=== PATIENT | male | born 1980 | race American Indian/Alaskan Native ===

== ENCOUNTER 2019-12-26 00:52 | Emergency (ER) | payer OTHER ==
[2019-12-26 01:22] VITALS: BP 164/96
--- NOTE | 2019-12-26 02:17 | Emergency Department Report ---
ED Neuro Deficit HPI - General Chief Complaint: Neuro Symptoms/Deficit Stated Complaint: RT SIDE NUMBNESS Time Seen by Provider: 12/26/19 01:46 Source: patient Mode of arrival: Ambulatory Limitations: No Limitations - History of Present Illness Initial Comments: 39-year-old male with history of hypertension presents to ED with complaint of [id number] sensation and pain in the right hand, right lower face, and right foot. Patient reports symptom onset 2 days ago on 12/24/2019. Patient denies any difficulty ambulating. Patient denies any weakness in the arm or the leg, denies any difficulty speaking, denies any facial droop. Patient denies headache. Patient was seen at outside facility on yesterday, states lab work and EKG were done, but no imaging. -: days(s) (2) Location: right face, other (right hand, right foot) Severity: mild Quality: tingling Improves With: none Worsens With: none On Anticoagulants: No Associated Symptoms: denies: chest pain, fever/chills, headaches, nausea/vomiting, vertigo, shortness of breath - Related Data Allergies/Adverse Reactions: Allergies Allergy/AdvReac Type Severity Reaction Status Date / Time No Known Allergies Allergy Unverified 12/26/19 01:28 ED Review of Systems ROS: Stated complaint: RT SIDE NUMBNESS Other details as noted in HPI Comment: All other systems reviewed and negative Constitutional: denies: chills, fever Respiratory: denies: shortness of breath Cardiovascular: denies: chest pain Gastrointestinal: denies: vomiting, diarrhea Musculoskeletal: other (denies neck and back pain) Neurological: paresthesias. denies: headache, weakness ED Past Medical Hx - Past Medical History Previous Medical History?: Yes Hx Hypertension: Yes Additional medical history: Cardiomyopathy - Surgical History Past Surgical History?: No - Social History Smoking Status: Never Smoker Substance Use Type: None ED Neuro Physical Exam - General Limitations: No Limitations General appearance: alert, in no apparent distress Suspected Stroke: No - Head Head exam: Present: atraumatic, normocephalic - Eye Eye exam: Present: normal appearance, PERRL, EOMI - ENT ENT exam: Present: mucous membranes moist - Neck Neck exam: Present: normal inspection. Absent: tenderness - Respiratory Respiratory exam: Present: normal lung sounds bilaterally. Absent: respiratory distress - Cardiovascular Cardiovascular Exam: Present: regular rate, normal rhythm - GI/Abdominal GI/Abdominal exam: Present: soft. Absent: distended, tenderness - Extremities Exam Extremities exam: Present: normal inspection - Back Exam Back exam: Present: normal inspection. Absent: tenderness - Neurological Exam Neurological exam: Present: alert, oriented X3, CN II-XII intact, normal gait. Absent: motor sensory deficit - NIHSS Assessment Interval: Baseline 1a. Level of Consciousness: alert/keenly responsive 1b. LOC Questions: answers both correctly 1c. LOC Commands: performs tasks correctly 2. Best Gaze: normal 3. Visual: no visual loss 4. Facial Palsy: normal symmetrical movement 5b. Motor Arm Right: no drift 5a. Motor Arm Left: no drift 6a. Motor Leg Left: no drift 6b. Motor Leg Right: no drift 7. Limb Ataxia: absent 8. Sensory: normal 9. Best Language: no aphasia 10. Dysarthria: normal 11. Extinction/Inattention: no abnormality Total Score: 0 Stroke Severity: No Stroke Symptoms - Psychiatric Psychiatric exam: Present: normal affect, normal mood - Skin Skin exam: Present: warm, dry, intact, normal color ED Course Vital Signs 12/26/19 12/26/19 01:18 01:28 Temperature 98.6 F Pulse Rate 98 H Respiratory 18 16 Rate Blood Pressure 164/96 O2 Sat by Pulse 98 Oximetry - Radiology Data Radiology results: report reviewed, image reviewed - Medical Decision Making - right face, right hand, right foot w/ pins and needles sensation - strength intact; no slurred speech; no facial droop - ambulates normally - CT Head negative - this does not seem consistent w/ a CVA given only pt's hand and foot are affected - will d/c home at this time - outpt neuro f/u advised, return precautions given - Differential Diagnosis CVA, neuropathy, MS Critical care attestation.: If time is entered above; I have spent that time in minutes in the direct care of this critically ill patient, excluding procedure time. ED Disposition Clinical Impression: Paresthesia Disposition: -01 TO HOME OR SELFCARE Is pt being admited?: No Condition: Stable Instructions: Paresthesia (ED) Referrals: PRIMARY MD FAVIOLA [Primary Care Provider] - 3-5 Days APOORVA GOEL MD [Referring] - 3-5 Days Time of Disposition: 02:42
--- NOTE | 2019-12-26 02:41 | Cat Scan Report ---
CT HEAD WITHOUT CONTRAST INDICATION / CLINICAL INFORMATION: right hand, right foot, right face numb. TECHNIQUE: All CT scans at this location are performed using CT dose reduction for ALARA by means of automated e xposure control. COMPARISON: None available. FINDINGS: HEMORRHAGE: None. EXTRA-AXIAL SPACES: Normal in size and morphology for the patient's age. VENTRICULAR SYSTEM: Normal in size and morphology for the patient's age. CEREBRAL PARENCHYMA: No significant abnormality. No acute territorial infarct. MIDLINE SHIFT OR HERNIATION: None. CEREBELLUM / BRAINSTEM: No significant abnormality. ORBITS: Normal as visualized. SOFT TISSUES of HEAD: No significant abnormality. CALVARIUM: No significant abnormality. PARANASAL SINUSES / MASTOID AIR CELLS: Normal as visualized. ADDITIONAL FINDINGS: None. IMPRESSION: 1. No acute intracranial abnormality. Signer Name: Vamsi Flores MD Signed: 12/26/2019 2:37 AM Workstation Name: [id number]
== END 2019-12-26 03:42 | disposition home or self-care (01) ==
LOC: ED 00:52
DX: R20.2 Paresthesia of skin (principal)
CPT/HCPCS: 70450